=== PATIENT | female | born 1955 | race Caucasian/White ===

== ENCOUNTER → 2016-12-02 | Outpatient (CLI) | payer OTHER ==
[~2016-12-02] MED LIST: BENEFIBER1 EAC1; FAMOTIDINE20 M1 PO; METOPROLOL SUCC50 MG PO; MULTIVITAMINS1 EAC2 PO; REMERON15 MG PO; SERTRALINE HCL50 M1 PO; TRIAMTERENE-HC1 EAC1 PO; VITAMIN D1000 UNI1 PO
== END | disposition home or self-care (01) ==
LOC: CBAR 14:13
DX: Z01.818 Encounter for other preprocedural examination (principal); E66.01 Morbid (severe) obesity due to excess calories
CPT/HCPCS: G0463

== ENCOUNTER → 2017-01-10 | Outpatient (CLI) | payer OTHER | END | disposition home or self-care (01) | LOC: CBAR 15:38 | DX: Z01.818 Encounter for other preprocedural examination (principal); E66.01 Morbid (severe) obesity due to excess calories | CPT/HCPCS: G0463 ==

== ENCOUNTER → 2017-02-14 | Outpatient (CLI) | payer OTHER | END | disposition home or self-care (01) | LOC: CBAR 13:32 | DX: Z01.818 Encounter for other preprocedural examination (principal); E66.01 Morbid (severe) obesity due to excess calories | CPT/HCPCS: G0463 ==

== ENCOUNTER → 2017-03-17 | Outpatient (CLI) | payer OTHER ==
--- NOTE | ~2017-03-17 | EKG ---
PATIENT: RADHA GARRETT UNIT #: [id number] Ventricular Rate: 70 BPM Atrial Rate: 70 BPM P-R Interval: 164 ms QRS Duration: 82 ms Q-T Interval: 420 ms QTC Calculation(Bezet): 453 ms P [place]: 56 degrees Calculated R [place]: 27 degrees Calculated T [place]: 52 degrees Diagnosis Line: Normal sinus rhythm Diagnosis Line: Normal ECG Diagnosis Line: No previous ECGs available Diagnosis Line: Confirmed by QUIQUE DARBY MD ([id number]) on Diagnosis Line: 03/18/2017 2:53:54 PM INTERPRETING MD: MARQUITA
--- NOTE | ~2017-03-17 | CR97 ---
[facility] A Service of [facility] & [facility] RADIOLOGY TEXT RESULTS PATIENT: RADHA GARRETT LOCATION: [facility] : 54 UNIT #: [id number] AGE: [address]: Jere Spangler MD SEX: F ORDER DR: [id number] [facility] [address]. [place], [place] [address] [id number] O MR#: [id number] Acc #: [id number] NAME: RADHA GARRETT : 1955 SEX: F STUDY DATE/TIME: 03/17/2017 8:43 UNIT: [facility] ROOM: STUDY DESCRIPTION: CR Esophagram Attending Physician: Jere Spangler M.D. Referring Physician: Jere Spangler M.D. Ordering Physician: Jere Spangler M.D. Primary Care Physician: Rashard Borges M.D. MEDICAL IMAGING REPORT This report is preliminary unless electronic signature is present EXAM Esophagram INDICATIONS Presurgical planning for Lap-Band placement. Obesity. COMPARISON None available. FINDINGS Double contrast esophagram was performed. There is normal appearance of esophageal mucosa. There is no stricture, mass, or extrinsic mass effect. Esophageal motility is within normal limits. 13 mm barium tablet swallowed have difficulty. No hiatal hernia. No gastroesophageal reflux. Fluoroscopic time 1.2 minutes, 12 images acquired. IMPRESSION Negative esophagram. Dictated by... Jose Manuel Perez M.D. THIS IS AN ELECTRONICALLY VERIFIED REPORT Jose Manuel Perez M.D. at 03/17/2017 4:54 PM Luis TD: 03/17/2017 15:47 JOB #: [id number] MEDICAL IMAGING REPORT Page 1 of 1 COPY
--- NOTE | ~2017-03-17 | CR63 ---
[facility] A Service of [facility] RADIOLOGY TEXT RESULTS PATIENT: RADHA GARRETT LOCATION: [facility] : 53 UNIT #: [id number] AGE: [address]: Jere Spangler MD SEX: F ORDER DR: [id number] [facility] [address]. [place], [place] [address] [id number] O MR#: [id number] Acc #: [id number] NAME: RADHA GARRETT : 1955 SEX: F STUDY DATE/TIME: 03/17/2017 8:21 UNIT: [facility] ROOM: STUDY DESCRIPTION: CR Chest 2 View Attending Physician: Jere Spangler M.D. Referring Physician: Jere Spangler M.D. Ordering Physician: Jere Spangler M.D. Primary Care Physician: Rashard Borges M.D. MEDICAL IMAGING REPORT This report is preliminary unless electronic signature is present EXAM Two view chest, 03/17/2017. HISTORY A 61-year-old woman preop clearance for laparoscopic adjustable gastric band placement and possible paraesophageal hernia repair. Short of air with activity. History of high blood pressure. COMPARISON Chest 02/10/2014. FINDINGS Two-view chest demonstrates normal cardiac size and configuration. Hilar structures and mediastinal contours are preserved. Bilateral lungs are expanded and clear. Large body habitus noted. Cervical fusion noted cervicothoracic transition. IMPRESSION Negative chest. Large body habitus. Previous lower cervical anterior fusion. Dictated by... Abelardo Tristan M.D. THIS IS AN ELECTRONICALLY VERIFIED REPORT Abelardo Tristan M.D. at 03/17/2017 1:11 PM AISHA/rober TD: 03/17/2017 11:50 JOB #: [id number] [facility] A Service of [facility] RADIOLOGY TEXT RESULTS PATIENT: RADHA GARRETT LOCATION: [facility] : 53 UNIT #: [id number] AGE: [address]: Jere Spangler MD SEX: F ORDER DR: MEDICAL IMAGING REPORT Page 1 of 1 COPY
[2017-03-17 09:33] LABS: HEMATOCRIT 40.4 % (35.0-45.0); HEMOGLOBIN 13.4 gm/dL (12.0-16.0); MEAN CELL VOLUME 85.9 FL (83-96); MEAN CORPUSCULAR HEMOGLOBIN 28.5 PG (28-34); MEAN CORPUSCULAR HGB CONC 33.2 g/dL (30-36); MEAN PLATELET VOLUME 8.1 FL (6.5-11.5); RED BLOOD COUNT 4.71 X10e (3.90-5.30); RED CELL DISTRIBUTION WIDTH 13.2 % (11.0-15.5); WHITE BLOOD COUNT 6.7 X10e3 (4.0-10.5)
[2017-03-17 10:26] LABS: ALBUMIN SERUM 4.2 g/dL (3.5-5.0); BILIRUBIN,TOTAL 1.3 mg/dL (0.2-2.0); BUN/CREATININE RATIO 18.75; CALCIUM SERUM 9.5 mg/dL (8.4-10.2); CREATININE SERUM 0.8 mg/dL (0.6-1.4); GLOM FILT RATE Estimated 79.1 mL/min (>60); POTASSIUM 3.9 mmol/L (3.5-5.1); PROTEIN TOTAL SERUM 7.2 g/dL (6.0-8.3)
== END | disposition home or self-care (01) ==
LOC: CRAD 08:05 → CAMB 09:30
PROVIDERS: Surgery
DX: Z01.818 Encounter for other preprocedural examination (principal); E66.9 Obesity, unspecified; Z98.1 Arthrodesis status
CPT/HCPCS: 36415; 71020; 74220; 80053; 80061; 84443; 85027; 93005

== ENCOUNTER → 2017-03-29 | Day surgery (SDC) | payer OTHER ==
--- NOTE | ~2017-03-29 | OR ---
Unit #: [id number] #: [id number] Patient: RADHA GARRETT [id number] [address] [address] [id number] O MR#: [id number] NAME: RADHA GARRETT ROOM: Date of Procedure: 03/29/2017 Admission Date: 03/29/2017 Surgeon: Jere Spangler M.D. : 1955 Attending Physician: Jere Spangler M.D. Primary Care Physician: Rashard Borges M.D. OPERATIVE REPORT PREOPERATIVE DIAGNOSIS Chronic morbid obesity. POSTOPERATIVE DIAGNOSES 1. Chronic morbid obesity. 2. Paraesophageal hiatal hernia. PROCEDURES PERFORMED 1. Laparoscopic adjustable gastric band. 2. Laparoscopic paraesophageal hiatal hernia repair. ASSISTANT Eb Hurst M.D. ANESTHESIA General anesthesia. ESTIMATED BLOOD LOSS Minimal. IV FLUIDS 800 crystalloid. COMPLICATIONS None. INDICATIONS FOR PROCEDURE The patient is a 61-year-old with chronic morbid obesity. DESCRIPTION OF PROCEDURE The patient was taken to the operating room and placed in supine position. General anesthesia was induced. The abdomen was prepped and draped. A 3-cm incision was then made left of the midline. A 10-mm Visiport was then placed intraabdominal under direct vision. The abdomen was insufflated to 15 mmHg with CO2. The patient was then placed in a steep reversed Trendelenburg. General inspection of the abdomen revealed what appeared to be a paraesophageal hernia. This was identified with a defect at the diaphragm using anterior palpation with the instrument. We then made a small incision in the subxiphoid region. A Britta liver retractor was then placed intraabdominal and used to retract the left lobe of the liver upward to further expose the paraesophageal hernia and GE junction. I then placed a 5-mm port in the right upper quadrant, a 10-mm Unit #: [id number] #: [id number] Patient: RADHA GARRETT port in the left upper quadrant, and another 5-mm port in the left lower quadrant. The stomach was retracted medial and downward. Upon retracting the stomach, we took down the paraesophageal ligament, exposing the right and left mercy at the paraesophageal hernia. Any hernia sac was reduced. We then repaired the paraesophageal hernia using interrupted #0 Ethibond sutures in a [id number] type fashion. This formed a snug repair to the anterior esophagus. We then retracted the stomach medially and further exposed the angle of His using Bovie electrocautery. The stomach was then retracted laterally. We then took down the hepatogastric ligament with Bovie electrocautery. This exposed the right mercy. Using blunt dissection, I created a retrogastric tunnel from this point to the angle of His. The band was then placed intraabdominal through the 10-mm port site. This was then brought through the retrogastric tunnel in a pars flaccida technique. The band was then closed anteriorly to form a 20-mL to 25-mL anterior gastric pouch. The fundus was then secured to the anterior pouch to prevent movement around the stomach using two interrupted #0 Ethibond sutures. A third suture was then used as a gathering stitch from the lesser curve to the anterior stomach, gathering and imbricating the remaining fundus of the stomach. The tubing was then brought out through the midline 10-mm port site. All ports and the Britta liver retractor were removed under direct vision with no evidence of abdominal hemorrhage. A polypropylene mesh was then secured to the posterior face of the laparoscopic band port. This was secured using #0 Ethibond suture. This was then cut to shape. The port was then connected to the tubing and placed into a subcutaneous pocket just anterior to the rectus sheath. Its position was then confirmed. All tubing was then placed intraabdominal. The wounds were then closed with interrupted 4-0 Vicryl. The patient tolerated the procedure well and was sent to the recovery room in good condition. Dictated by... Tara Diaz/jose TD: 03/30/2017 11:10 JOB #: [id number] OPERATIVE REPORT Page 1 of 1 X Jere Spangler MD PROCEDURE OPERATIVE NOTE
--- NOTE | ~2017-03-29 | CR7 ---
[facility] A Service of [facility] & [facility] RADIOLOGY TEXT RESULTS PATIENT: RADHA GARRETT LOCATION: [facility] : 53 UNIT #: [id number] AGE: [address]: Jere Spangler MD SEX: F ORDER DR: [id number] [facility] [address]. [place], [place] [address] [id number] O MR#: [id number] Acc #: [id number] NAME: RADHA GARRETT : 1955 SEX: F STUDY DATE/TIME: 03/29/2017 1234 UNIT: [facility] ROOM: STUDY DESCRIPTION: CR Abdomen Single AP View Attending Physician: Jere Spangler M.D. Ordering Physician: Jere Spangler M.D. Primary Care Physician: Rashard Borges M.D. MEDICAL IMAGING REPORT This report is preliminary unless electronic signature is present EXAM Abdomen single view 03/29/2017 1234 hours HISTORY Morbid obesity, postop Lap-Band placement today. COMPARISON 03/17/2017 FINDINGS See impression. IMPRESSION A single limited view of the abdomen is performed. The patient also appears somewhat rotated. There is a new Lap-Band overlying the T11-T10 vertebral body to the left of midline oriented at 73 degrees. There is distension of the stomach distal to the band. Radiopaque tubing courses inferiorly to a port overlying the left inferior aspect of L4. Bowel gas pattern is unremarkable. Dictated by... Charline Herrera M.D. THIS IS AN ELECTRONICALLY VERIFIED REPORT Charline Herrera M.D. at 03/29/2017 8:32 PM Stella TD: 03/29/2017 16:55 JOB #: [id number] MEDICAL IMAGING REPORT Page 1 of 1 COPY
== END | disposition home or self-care (01) ==
LOC: CSUR 07:57
DX: E66.01 Morbid (severe) obesity due to excess calories (principal); K44.9 Diaphragmatic hernia without obstruction or gangrene; K21.9 Gastro-esophageal reflux disease without esophagitis; I10 Essential (primary) hypertension; M19.90 Unspecified osteoarthritis, unspecified site; Z68.35 Body mass index [BMI] 35.0-35.9, adult; Z72.4 Inappropriate diet and eating habits; Z87.442 Personal history of urinary calculi; Z88.0 Allergy status to penicillin; Z88.1 Allergy status to other antibiotic agents; Z88.6 Allergy status to analgesic agent; Z79.899 Other long term (current) drug therapy; Z90.721 Acquired absence of ovaries, unilateral; Z90.49 Acquired absence of other specified parts of digestive tract; Z90.710 Acquired absence of both cervix and uterus; Z98.890 Other specified postprocedural states
CPT/HCPCS: 74000; C1781; J0330; J1650; J1885; J2250; J2405; J3010; J3370